=== PATIENT | female | born 1990 | race Caucasian/White ===

== ENCOUNTER → 2017-11-12 12:14 | Outpatient (CLI) | payer OTHER, SELFPAY ==
[2017-11-14 16:09] LABS: Endomysial Antibody IgA Negative (Negative)
[2017-11-15 12:46] LABS: Immunoglobulin A 102 mg/dL (87-352); t-Transglutaminase IgA <2 U/mL (0-3)
== END ==
PROVIDERS: Family Provider Family Medicine; PCP Family Medicine; Visit Provider Family Medicine
DX: R10.13 Epigastric pain (principal)
CPT/HCPCS: 36415; 82784; 83516; 86255

== ENCOUNTER → 2017-12-17 08:00 | Outpatient (CLI) | payer OTHER, SELFPAY ==
--- NOTE | 2017-12-17 08:10 | RAD_ITS ---
STUDY: AIR-CONTRAST UPPER GI SERIES AND SMALL BOWEL FOLLOW-THROUGH. REASON FOR EXAM: Female, 27 years old. Six-month history of bloating. FLUOROSCOPY TIME (if supplied): (1:30) minutes/seconds TECHNIQUE: The patient ingested barium. Multiple images of the esophagus, stomach and duodenum were obtained. COMPARISON: None. FINDINGS: The esophagus is unremarkable. There is no evidence of a gastroesophageal reflux. No mass lesion is seen. The stomach and duodenum are unremarkable. There is no evidence of ulceration. No mass lesion is seen. A small bowel follow-through examination was then performed. The small bowel transit is normal. There is no evidence of intrinsic or extrinsic small bowel disease. RAD/Upper GI/w Small Bowel IMPRESSION: Unremarkable air contrast upper GI series and small bowel follow-through examination. Electronically Signed: Loyd Mabry MD at 15:25 EDT Tel [phone], Service support ,
== END ==
PROVIDERS: Family Provider Family Medicine; PCP Family Medicine; Visit Provider Surgery
DX: R14.0 Abdominal distension (gaseous) (principal)
CPT/HCPCS: 74249

== ENCOUNTER → 2022-06-28 | Outpatient (CLI) | payer OTHER, SELFPAY ==
[2022-06-28 17:32] LABS: Absolute Lymphocyte Count 1.67 X10^3/uL (0.83-4.51); Absolute Neutrophil Count 4.3 X10^3/uL (2.0-7.7); Basophil# 0.06 X10^3/uL; Basophil% 0.9 % (0-1); Eosinophil# 0.15 X10^3/uL; Eosinophils% 2.3 % (0-5); Hematocrit 42.9 % (37-47); Hemoglobin 14.3 g/dL (12.0-15.0); Lymphocyte # 1.67 X10^3/ul (0.83-4.51); Lymphocyte % 25.2 % (19-41); Mean Corp Hgb Conc 33.3 g/dL (32-36); Mean Corpuscular Hgb 28.9 pg (27.0-32.0); Mean Corpuscular Volume 86.7 fL (81-99); Mean Platelet Vol. 10.1 fl (6.2-12.0); Monocyte# 0.48 X10^3/uL; Monocyte% 7.2 % (0-10); NRBC Flagged by Analyzer 0 % (0-5); Neutrophil # 4.26 X10^3/uL (2.7-7.7); Neutrophil % 64.1 % (47-70); Platelet Count 256 K/mm3 (150-450); RBC Distribution Width CV 12.7 % (11.6-14.6); RBC Distribution Width SD 40.3 fl (35.1-43.9); Red Blood Count 4.95 M/mm3 (4.2-5.4); White Blood Count 6.6 K/mm3 (4.4-11.0)
[2022-06-28 18:03] LABS: Thyroid Stim Hormone (TSH) 1.72 uIU/mL (0.358-3.74)
== END | disposition home or self-care (01) ==
LOC: BFHLAB 16:02
PROVIDERS: PCP Family Medicine; Visit Provider Family Medicine
DX: F32.A Depression, unspecified (principal)
CPT/HCPCS: 36415; 84443; 85025